=== PATIENT | male | born 1990 | race Hispanic/Latino ===

== ENCOUNTER 2023-10-30 10:54 | Inpatient (IN) | payer SELFPAY ==
[2023-10-30] MEDS ORDERED: Ipratropium/Albuterol 3 ML NEB ONE ×3 (11:08→13:07)
[2023-10-30 11:31] LABS: #Basophils 0.1 thou/uL (0.0-0.2); #Eosinphils 0.7 thou/uL (0.0-0.7); #Monocytes 0.6 thou/uL (0.11-0.59); #Neutrophils 4.6 thou/uL (1.40-6.50); %Basophils 0.9 % (0.0-1.0); %Eosinophils 9.1 % (0.0-10.0); %Lymphocytes 20.6 % (21.0-51.0); %Monocytes 8.4 % (0.0-10.0); %Neutrophils 60.9 % (42.0-75.0); Hematocrit 50.7 % (42.0-52.0); Hemoglobin 17.8 g/dL (14.0-18.0); Mean Corpuscular HGB CONC 35.1 g/dL (32.0-36.0); Mean Corpuscular Hemoglobin 31.6 pg (27.0-31.0); Mean Corpuscular Volume 89.9 fl (78.0-98.0); Mean Platelet Volume 10.3 fL (7.4-10.4); Platelet Count 190 10x3/uL (130-400); RBC Distribution Width 12.4 % (11.5-14.5); Red Blood Cell (RBC) Count 5.64 mill/uL (4.70-6.10); White Blood Cell (WBC) Count 7.5 10x3/uL (4.8-10.8)
[2023-10-30] MEDS ORDERED: methylPREDNISolone Sod Succ/PF 125 MG/2 ML VIAL ONE (11:45)
[2023-10-30 12:00] LABS: ALT (SGPT) 20 U/L (8-55); AST (SGOT) 41 U/L (5-34); Albumin 4.9 g/dL (3.5-5.0); Alkaline Phosphatase 63 U/L (40-110); Anion Gap 16 mmol/L (10-20); BUN (Urea Nitrogen) 22 mg/dL (8.9-20.6); Bilirubin, Total 0.8 mg/dL (0.2-1.2); Calc. Creatinine Clearance 0 mL/min (70-130); Calcium 9.9 mg/dL (7.8-10.44); Carbon Dioxide 21 mmol/L (22-29); Chloride 105 mmol/L (98-107); Estimated GFR 97; Glucose 88 mg/dL (70-105); Potassium 5.6 mmol/L (3.5-5.1); Protein, Total 8.9 g/dL (6.0-8.3); Sodium 136 mmol/L (136-145)
[2023-10-30 12:02] LABS: Troponin I 0.011 ng/mL (< 0.028)
[2023-10-30] MEDS ORDERED: cefTRIAXone (ROCEPHIN) 2 GM VIAL ONE (12:23)
[2023-10-30] MEDS ORDERED: Sodium Chloride 0.9% 100 ML ONE (12:24)
[2023-10-30] MEDS ORDERED: Albuterol 2.5 MG (3 mL) NEB ONE (13:07)
[2023-10-30 13:27] LABS: Influenza A by NAA Not Detected (NotDetected); Influenza B by NAA Not Detected (NotDetected); SARS-CoV-2 NAA Rapid Test Not Detected (NotDetected)
[2023-10-30] MEDS ORDERED: Azithromycin 500 MG VIAL ONE (13:53)
[2023-10-30] MEDS ORDERED: Bisacodyl 10 MG SUPP PR PRN (15:11)
[2023-10-30] MEDS ORDERED: Ondansetron ODT 4 MG TAB PO PRN (15:11)
[2023-10-30] MEDS ORDERED: Bisacodyl 5 MG TAB PO PRN (15:11)
[2023-10-30] MEDS ORDERED: Ondansetron PF 4 MG/2 ML Vial IVP PRN (15:11)
[2023-10-30] MEDS ORDERED: Senokot S 8.6-50 MG TAB PO PRN (15:11)
[2023-10-30] MEDS ORDERED: Acetaminophen 650 MG Suppository PR PRN (15:11)
[2023-10-30 18:00] LABS: HIV (1/2) Antibody/Antigen Non-Reactive (NonReactive); HIV 1/2 INDEX 0.25 S/CO (<1.00)
[2023-10-30 18:22] VITALS: BMI 22.1
[2023-10-30] MEDS: Sodium Chloride 0.9% 1,000 ML IV SCH (18:28)
[2023-10-30] MEDS: Albuterol 200 PUFF (6.7GM INHALER) INH SCH (18:31)
[2023-10-30] MEDS: methylPREDNISolone Sod Succ/PF 125 MG/2 ML VIAL IVP SCH (18:32)
[2023-10-30] MEDS ORDERED: Ipratropium/Albuterol 3 ML NEB NEB PRN (19:00)
[2023-10-30] MEDS: Guaifenesin DM 100-10/5 ML UDCUP PO PRN (22:44)
[2023-10-31 05:40] LABS: #Monocytes 0.2 thou/uL (0.11-0.59); #Neutrophils 5.3 thou/uL (1.40-6.50); %Basophils 0.2 % (0.0-1.0); %Monocytes 3.4 % (0.0-10.0); %Neutrophils 84.1 % (42.0-75.0); Hematocrit 42.3 % (42.0-52.0); Mean Corpuscular HGB CONC 34.8 g/dL (32.0-36.0); Mean Corpuscular Hemoglobin 31.4 pg (27.0-31.0); Mean Corpuscular Volume 90.4 fl (78.0-98.0); Mean Platelet Volume 10.3 fL (7.4-10.4); Platelet Count 199 10x3/uL (130-400); RBC Distribution Width 12.4 % (11.5-14.5); Red Blood Cell (RBC) Count 4.68 mill/uL (4.70-6.10); White Blood Cell (WBC) Count 6.3 10x3/uL (4.8-10.8)
[2023-10-31 05:53] LABS: Hemoglobin 14.7 g/dL (14.0-18.0)
[2023-10-31 05:56] LABS: Anion Gap 16 mmol/L (10-20); BUN (Urea Nitrogen) 22 mg/dL (8.9-20.6); Calc. Creatinine Clearance 120 mL/min (70-130); Calcium 9.3 mg/dL (7.8-10.44); Carbon Dioxide 20 mmol/L (22-29); Chloride 107 mmol/L (98-107); Estimated GFR 121; Glucose 137 mg/dL (70-105); Potassium 4.1 mmol/L (3.5-5.1); Sodium 139 mmol/L (136-145)
[2023-10-31] MEDS: Enoxaparin 40 MG (0.4 mL) SYRINGE SC SCH (09:32)
[2023-10-31] MEDS: cefTRIAXone\\ROCEPHIN 1 GM in Sodium Chloride 0.9% 100 ML IVPB SCH (12:28)
[2023-10-31] MEDS: Azithromycin 500 MG in Sodium Chloride 0.9% 250 ML 250 ML IVPB SCH (15:13)
[2023-10-31] MEDS ORDERED: Mometasone 200 MCG/Formoterol 5 MCG 120 PUFF INHALER INH SCH (16:30)
[2023-10-31] MEDS: Magnesium 2 GM/50 ML(in water) 2 GM in Premix 1 BAG IVPB SCH (18:15)
[2023-10-31] MEDS: Ipratropium/Albuterol 3 ML NEB NEB SCH (18:37)
[2023-10-31] MEDS: Mometasone 200 MCG/Formoterol 5 MCG 120 PUFF INHALER INH SCH (18:38)
[2023-10-31] MEDS: Montelukast Sodium 10 mg Tablet PO SCH (20:28)
[2023-11-01] MEDS: Mometasone 200 MCG/Formoterol 5 MCG 120 PUFF INHALER INH SCH (06:59)
[2023-11-01 07:25] LABS: Anion Gap 15 mmol/L (10-20); BUN (Urea Nitrogen) 28 mg/dL (8.9-20.6); Calc. Creatinine Clearance 114 mL/min (70-130); Calcium 8.9 mg/dL (7.8-10.44); Carbon Dioxide 22 mmol/L (22-29); Chloride 106 mmol/L (98-107); Estimated GFR 119; Glucose 133 mg/dL (70-105); Potassium 4.1 mmol/L (3.5-5.1); Sodium 139 mmol/L (136-145)
[2023-11-01] MEDS ORDERED: Albuterol 200 PUFF (6.7GM INHALER) INH PRN ×2 (17:30→21:00)
[2023-11-01] MEDS: Acetaminophen 325 MG TAB PO PRN (19:43)
[2023-11-01] MEDS: methylPREDNISolone Sod Succ 40 MG VIAL IVP SCH (23:40)
[2023-11-02] MEDS ORDERED: FLU VACC QS2023-24(6MOS UP)/PF 60 MCG/0.5 ML SYRINGE IM ONE (18:30)
[2023-11-03 08:32] VITALS: BP 120/74; TEMP 98.1
[2023-11-03] MEDS: Azithromycin 250 MG TAB PO SCH (08:48)
== END 2023-11-03 13:14 | disposition home or self-care (01) | DRG 189 ==
LOC: ERS 10:54 → IMCU/EMU 16:43 → T4-A 11-01 12:06
PROVIDERS: ADMIT Internal Medicine; ATTEND Internal Medicine
DX: J96.01 Acute respiratory failure with hypoxia (principal); J45.902 Unspecified asthma with status asthmaticus; E87.5 Hyperkalemia; Z79.899 Other long term (current) drug therapy
CPT/HCPCS: 36415; 36416; 71045; 80048; 80053; 83605; 84484; 85025; 85379; 87040; 87389; 93005; 94640; 94644; 94760; 96374; 96375; J0456; J0696; J1650; J2920; J2930; J3475; J3490; J7050; J7611; J7620

== ENCOUNTER 2024-01-06 22:11 | Inpatient (IN) | payer SELFPAY ==
[2024-01-07] MEDS ORDERED: Ipratropium/Albuterol 3 ML NEB ONE ×4 (02:06→07:05)
[2024-01-07] MEDS ORDERED: methylPREDNISolone Sod Succ/PF 125 MG/2 ML VIAL ONE (02:35)
[2024-01-07] MEDS ORDERED: Albuterol 2.5 MG (3 mL) NEB NEB PRN (03:48)
[2024-01-07] MEDS ORDERED: Acetaminophen 325 MG TAB PO PRN (03:49)
[2024-01-07] MEDS ORDERED: Ondansetron ODT 4 MG TAB PO PRN (03:49)
[2024-01-07 03:55] LABS: #Basophils 0.07 10x3/uL (0.0-0.2); %Basophils 0.8 % (0.0-1.0); %Lymphocytes 27.1 % (21.0-51.0); %Monocytes 9.3 % (0.0-10.0); %Neutrophils 49.6 % (42.0-75.0); Hematocrit 53.3 % (42.0-52.0); Hemoglobin 18.6 g/dL (14.0-18.0); Mean Corpuscular HGB CONC 34.9 g/dL (32.0-36.0); Mean Corpuscular Hemoglobin 30.8 pg (27.0-31.0); Mean Corpuscular Volume 88.2 fL (78.0-98.0); Mean Platelet Volume 10.1 fL (7.4-10.4); Platelet Count 254 10x3/uL (130-400); RBC Distribution Width 12.4 % (11.5-14.5); Red Blood Cell (RBC) Count 6.04 mill/uL (4.70-6.10)
[2024-01-07] MEDS ORDERED: Magnesium 2 GM/50 ML BAG (IN WATER) ONE (04:14)
[2024-01-07 04:25] LABS: Influenza A by NAA Not Detected (NotDetected); Influenza B by NAA Not Detected (NotDetected); SARS-CoV-2 NAA Rapid Test Not Detected (NotDetected)
[2024-01-07 04:30] LABS: ALT (SGPT) 26 U/L (8-55); AST (SGOT) 20 U/L (5-34); Albumin 5.2 g/dL (3.5-5.0); Alkaline Phosphatase 61 U/L (40-110); Anion Gap 15 mmol/L (10-20); BUN (Urea Nitrogen) 24 mg/dL (8.9-20.6); Bilirubin, Total 0.7 mg/dL (0.2-1.2); Calc. Creatinine Clearance 0 mL/min (70-130); Calcium 10.9 mg/dL (7.8-10.44); Carbon Dioxide 28 mmol/L (22-29); Chloride 104 mmol/L (98-107); Estimated GFR 112; Globulin 3.5 g/dL (2.4-3.5); Glucose 98 mg/dL (70-105); Potassium 4.1 mmol/L (3.5-5.1); Protein, Total 8.7 g/dL (6.0-8.3); Sodium 143 mmol/L (136-145)
[2024-01-07] MEDS: Ipratropium/Albuterol 3 ML NEB NEB SCH (07:08)
[2024-01-07] MEDS: Mometasone 100 MCG/Formoterol 5 MCG 120 PUFF INHALER INH SCH (07:42)
[2024-01-07 08:32] VITALS: BMI 20.9
[2024-01-07] MEDS: Loratadine 10 MG TAB PO SCH (08:56)
[2024-01-07] MEDS: Famotidine 20 MG TAB PO SCH (08:56)
[2024-01-07] MEDS: methylPREDNISolone Sod Succ 40 MG VIAL IVP SCH (08:56)
[2024-01-07] MEDS: Montelukast Sodium 10 mg Tablet PO SCH (20:15)
[2024-01-08 05:48] LABS: #Basophils Less than 0.03 10x3/uL (0.0-0.2); #Eosinphils Less than 0.03 10x3/uL (0.0-0.7); %Basophils 0.1 % (0.0-1.0); %Lymphocytes 7.6 % (21.0-51.0); %Monocytes 4.1 % (0.0-10.0); %Neutrophils 87.9 % (42.0-75.0); Hematocrit 45.2 % (42.0-52.0); Hemoglobin 15.7 g/dL (14.0-18.0); Mean Corpuscular HGB CONC 34.7 g/dL (32.0-36.0); Mean Corpuscular Hemoglobin 31.5 pg (27.0-31.0); Mean Corpuscular Volume 90.6 fL (78.0-98.0); Mean Platelet Volume 10.2 fL (7.4-10.4); Platelet Count 245 10x3/uL (130-400); RBC Distribution Width 12.4 % (11.5-14.5); Red Blood Cell (RBC) Count 4.99 mill/uL (4.70-6.10)
[2024-01-08 06:12] LABS: Anion Gap 16 mmol/L (10-20); BUN (Urea Nitrogen) 31 mg/dL (8.9-20.6); Calc. Creatinine Clearance 99 mL/min (70-130); Carbon Dioxide 22 mmol/L (22-29); Chloride 103 mmol/L (98-107); Estimated GFR 112; Glucose 146 mg/dL (70-105); Potassium 4.5 mmol/L (3.5-5.1); Sodium 136 mmol/L (136-145)
[2024-01-08] MEDS: Guaifenesin DM 100-10/5 ML UDCUP PO PRN (10:06)
[2024-01-08] MEDS: Benzonatate 100 MG CAP PO SCH (10:10)
[2024-01-08] MEDS: methylPREDNISolone Sod Succ 40 MG VIAL IVP SCH (13:48)
[2024-01-09 07:04] LABS: Anion Gap 16 mmol/L (10-20); BUN (Urea Nitrogen) 29 mg/dL (8.9-20.6); Calc. Creatinine Clearance 113 mL/min (70-130); Calcium 9.8 mg/dL (7.8-10.44); Carbon Dioxide 23 mmol/L (22-29); Chloride 103 mmol/L (98-107); Estimated GFR 120; Glucose 135 mg/dL (70-105); Potassium 4.5 mmol/L (3.5-5.1); Sodium 137 mmol/L (136-145)
[2024-01-10 09:37] VITALS: BP 122/52; TEMP 98.6
== END 2024-01-10 11:34 | disposition home or self-care (01) | DRG 189 ==
LOC: ERS 22:12 → ERHOLD 01-07 03:49 → T4-A 01-07 07:46 → OBSVTOIN 01-08 09:06
PROVIDERS: ADMIT Student in an Organized Health Care Education/Training Program; ATTEND Hospitalist
DX: J96.01 Acute respiratory failure with hypoxia (principal); J45.902 Unspecified asthma with status asthmaticus; Z79.899 Other long term (current) drug therapy
CPT/HCPCS: 36415; 71046; 80048; 80053; 85025; 94640; 96365; 96375; J2920; J2930; J3475; J7620